=== PATIENT | male | born 1955 | race African-American/Black ===

== ENCOUNTER → 2017-01-23 | Outpatient (CLI) | payer OTHER ==
[~2017-01-23] VITALS: Ht 170.2 cm; Wt 89.8 kg
[~2017-01-23] MED LIST: GABAPENTIN100 MG PO; LOSARTAN-HCTZ1 EAC2 PO; LOVASTATIN 20 M20 MG PO; LYRICA 75 MG CA75 MG PO; MOBIC15 MG PO; NEURONTIN 300300 M1 PO; OMEPRAZOLE20 M1 PO; OXYCODONE-ACET1 EACH PO; OXYCODONE-APAP1 EAC6 PO; PERCOCET
--- NOTE | ~2017-01-23 | HPC ---
[facility] [place] [address] PAIN MANAGEMENT CONSULTATION Name: MIGUEL DAY Room #: REG PATI Yasmine#: [id number] Admission: 01/23/17 Attend Phys: Miguel Baron MD Discharge: Date of : 51 Report #: [id number] THIS REPORT FOR: //name// CC: Carmelo Baron DATE OF SERVICE: 01/26/2017 Followup visit for chronic low back pain and management of high risk medication. The patient is in the clinic today. His pain score is 5-6, although it can be much more severe. Pain is in his back and also radiates into his left leg, begins in his hip, radiates all the way down to his toes. When his back is hurting, he also has pain into his shoulder blades. He saw a neurosurgeon on 09/19/2016, Dr. Spear who recommended surgery, but he does not want to proceed with surgical option. 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 The pain is affecting him and making him more grumpy by his own report. He has occasionally had his leg give out on him, which is concerning to him. Medications have been helpful for pain under terms of an agreement we have signed. He takes oxycodone 5 mg just once a day and he has some meloxicam which he has also utilized with mixed benefit. He takes omeprazole as a preventative for GI side effects. He has tried gabapentin, which caused hives and he is now on Lyrica 75 mg b.i.d. The trial was just began. PHYSICAL EXAMINATION: His affect is grumpy today. His blood pressure is 130/78, heart rate 98, respirations 16. BMI of 31, moves from a sitting to standing position, walks with antalgic features. He has a positive straight leg raising on the left. Foot drop is present on the left and he has a non-articulating AFO which was ordered for him in August. MRI scan from 08/25/2016 was once again reviewed with the patient. It shows grade 1 anterolisthesis of L4 on L5 with discogenic endplate changes. There are bilateral neural foraminal components to the disk bulge appearing to abut and compress the exiting L4 nerve roots, greater left than right. He has moderate loss of disk height at L5-S1 with circumferential disk bulging and flattening, similar findings found at L3-L4 with circumferential bulging, mild bilateral facet and ligamentum flavum hypertrophy are noted. The most prominent likely location for his pain is at the L4-L5 level where he has the anterolisthesis. He is a candidate for epidural injections. His last treatment was bilateral transforaminal epidural injections performed in May. I have offered repeat injections. We will perform that if we have received preauthorization and we will pursue that. [place] [address] PAIN MANAGEMENT CONSULTATION Name: DAYMIGUEL ZAMARRIPA Room #: REG PATI Underwood#: [id number] Admission: 01/23/17 Attend Phys: Miguel Baron MD Discharge: Date of : 51 Report #: [id number] allow him to continue to work. He is given oxycodone 7.5, a 50% increase. He does not use it often, so I am not too worried. His morphine milligram equivalent dose is less than 15 mg per day. Nonetheless, I have told him to safeguard his medication carefully and we will see him back in the pain clinic for epidural injection at his request. He is also an excellent candidate for spinal cord stimulator. We briefly discussed it today. By: [id number] Miguel Baron MD /yoni
[2017-01-23 14:48] VITALS: BP 130/78
== END | disposition home or self-care (01) ==
LOC: PAIN 07:46
DX: M48.06 Spinal stenosis, lumbar region (principal); Z68.31 Body mass index [BMI] 31.0-31.9, adult; Z79.899 Other long term (current) drug therapy